=== PATIENT | male | born 1990 | race American Indian/Alaskan Native ===

== ENCOUNTER 2018-04-24 15:06 | Emergency (ER) | payer SELFPAY ==
[2018-04-24 16:07] LABS: Bilirubin,Urine NEG (Negative); Blood,Urine SM (Negative); Color,Urine Yellow (Yellow); Mucus,Urine 1+ /HPF; Protein,Urine <15 mg/dL mg/dL (Negative); Urobilinogen,Urine < 2.0 mg/dL (<2.0)
[2018-04-24] MEDS ORDERED: BICILLIN L-A IM ONE (17:02)
--- NOTE | 2018-04-24 17:08 | Emergency Department Report ---
ED Male HPI - General Chief complaint: Urogenital-Male Stated complaint: GENITALS/RED SPOTS Time Seen by Provider: 04/24/18 16:42 Source: patient Mode of arrival: Ambulatory Limitations: No Limitations - History of Present Illness Initial comments: Patient is a 28-year-old [place] male uncircumcised 2 on the glans penis and just proximal to the glans underneath his foreskin patient has painless ulcerated lesions do been present for the past day. Patient denies any dysuria or penile discharge. Patient is sexually active. - Related Data Previous Rx's Medication Instructions Recorded Last Taken Type Bacitracin Zinc Oint [Antibiotic 1 applicatio TP BID #1 tube 04/24/18 Unknown Rx Oint] Clotrimazole 1% [Lotrimin 1%] 1 applic TP BID #1 tube 04/24/18 Unknown Rx Allergies Allergy/AdvReac Type Severity Reaction Status Date / Time No Known Allergies Allergy Unverified 04/24/18 15:23 ED Review of Systems ROS: Stated complaint: GENITALS/RED SPOTS Other details as noted in HPI Comment: All other systems reviewed and negative ED Past Medical Hx - Past Medical History Previous Medical History?: No - Surgical History Past Surgical History?: No - Social History Smoking Status: Never Smoker Substance Use Type: None - Medications Home Medications: Home Medications Medication Instructions Recorded Confirmed Last Taken Type Bacitracin Zinc Oint [Antibiotic 1 applicatio TP BID #1 tube 04/24/18 Unknown Rx Oint] Clotrimazole 1% [Lotrimin 1%] 1 applic TP BID #1 tube 04/24/18 Unknown Rx ED Physical Exam - General Limitations: No Limitations General appearance: alert, in no apparent distress - Head Head exam: Present: atraumatic, normocephalic - Eye Eye exam: Present: normal appearance - ENT ENT exam: Present: mucous membranes moist - Neck Neck exam: Present: normal inspection - Respiratory Respiratory exam: Present: normal lung sounds bilaterally. Absent: respiratory distress - Cardiovascular Cardiovascular Exam: Present: regular rate, normal rhythm. Absent: systolic murmur, diastolic murmur, rubs, gallop - GI/Abdominal GI/Abdominal exam: Present: soft, normal bowel sounds. Absent: distended, tenderness, guarding - Rectal Rectal exam: Present: deferred - exam: Absent: normal inspection, testicular tenderness, urethral discharge, scrotal swelling, vertical testicular lie External exam: Present: lesions (patient has approximate 3 round erythematous lesions that are nonpainful just proximal to the glans penis underneath his foreskin. One of these lesions is extend into the glans.) - Extremities Exam Extremities exam: Present: normal inspection - Back Exam Back exam: Present: normal inspection - Neurological Exam Neurological exam: Present: alert, oriented X3 - Psychiatric Psychiatric exam: Present: normal affect, normal mood - Skin Skin exam: Present: warm, dry, intact, normal color. Absent: rash ED Course Vital Signs 04/24/18 15:23 Temperature 98.9 F Pulse Rate 55 L Respiratory 16 Rate Blood Pressure 114/68 O2 Sat by Pulse 99 Oximetry ED Medical Decision Making - Medical Decision Making As these lesions are not painful herpes is less likely. RPR will be ordered patient also be covered for yeast as well. Critical care attestation.: If time is entered above; I have spent that time in minutes in the direct care of this critically ill patient, excluding procedure time. ED Disposition Clinical Impression: Penile lesion Disposition: DC-01 TO HOME OR SELFCARE Is pt being admited?: No Does the pt Need Aspirin: No Condition: Stable Prescriptions: Bacitracin Zinc Oint [Antibiotic Oint] 1 applicatio TP BID #1 tube Clotrimazole 1% [Lotrimin 1%] 1 applic TP BID #1 tube Referrals: PRIMARY CARE, [Primary Care Provider] - 3-5 Days
[2018-04-24 17:20] VITALS: BP 116/70
== END 2018-04-24 17:17 | disposition home or self-care (01) ==
LOC: ED 15:06
DX: N48.89 Other specified disorders of penis (principal)
CPT/HCPCS: 36415; 81001; 86592; 87086; 96372; 99283; J0561

== ENCOUNTER 2019-02-20 17:56 | Emergency (ER) | payer OTHER ==
--- NOTE | 2019-02-20 18:13 | Emergency Department Report ---
Blank Doc - Documentation Documentation: 28 y o male presents to Ed cc of n/v/d x 10 pm last night ate seafood yesterday basic labs,ua acc eval
[2019-02-20 18:45] LABS: Bilirubin,Urine NEG (Negative); Blood,Urine MOD (Negative); Color,Urine Yellow (Yellow); Mucus,Urine FEW /HPF; Protein,Urine <15 mg/dL mg/dL (Negative); Urobilinogen,Urine < 2.0 mg/dL (<2.0)
[2019-02-20 18:47] LABS: Basophils # (Auto) 0.1 K/mm3 (0.0-0.1); Eosinophils # (Auto) 0.2 K/mm3 (0.0-0.4); Eosinophils % (Auto) 3.2 % (0.0-4.3); Hematocrit 44.4 % (35.5-45.6); Hemoglobin 14.9 gm/dl (11.8-15.2); Lymphocytes # (Auto) 2.2 K/mm3 (1.2-5.4); Mean Corpuscular HGB Conc 34 % (32-34); Mean Corpuscular Volume 96 fl (84-94); Monocytes # (Auto) 0.5 K/mm3 (0.0-0.8); Monocytes % (Auto) 8.3 % (0.0-7.3); Platelet Count 275 K/mm3 (140-440); Red Blood Count 4.62 M/mm3 (3.65-5.03)
[2019-02-20 18:53] LABS: BUN/Creatinine Ratio 18; Blood Urea Nitrogen 14 mg/dL (9-20); Calcium 8.9 mg/dL (8.4-10.2)
[2019-02-20 18:54] LABS: Hemolysis Index 9
[2019-02-20] MEDS ORDERED: TORADOL IV ONE (20:17)
[2019-02-20] MEDS ORDERED: ZOFRAN IV ONE (20:17)
[2019-02-20] MEDS ORDERED: NACL 0.9% 1000 ML 1,000 ML IV ONE (20:17)
[2019-02-20 21:18] LABS: Alanine Aminotransferase 22 units/L (7-56); Albumin 4.3 g/dL (3.9-5)
--- NOTE | 2019-02-20 21:18 | Cat Scan Report ---
PROCEDURE: CT ABDOMEN PELVIS WO CON HISTORY: abd pain FINDINGS: Unenhanced CT of the abdomen and pelvis was performed. The heart is normal in size. The lung bases appear clear. There are small bilateral renal calculi. No ureteral calculus or hydronephrosis is identified. The adrenal glands, gallbladder, spleen, pancreas are unremarkable. There is no small or large bowel obstruction. There is a small right lobe hepatic hypodensity, 0.3 cm consistent with cyst Pelvis: There is a normal appendix. There is no evidence of diverticulitis. The prostate and urinary bladder are within normal limits. There is a small posterior disc bulge L5-S1. There is no evidence of canal stenosis or nerve root imp ingement IMPRESSION: ABDOMEN: Bilateral nonobstructing renal calculi Pelvis: Normal appendix This document is electronically signed by Donaldo Monroy MD., February 20 2019 10:16:14 PM ET
[2019-02-20 21:26] LABS: Bilirubin,Direct < 0.2 mg/dL (0-0.2)
--- NOTE | 2019-02-20 21:35 | Emergency Department Report ---
ED Abdominal Pain HPI - General Chief Complaint: Abdominal Pain Stated Complaint: ABD PAIN/V/D/DIZZY Time Seen by Provider: 02/20/19 18:11 Source: patient Mode of arrival: Ambulatory Limitations: No Limitations - History of Present Illness Initial Comments: 28 y o male presents to Ed cc of n/v/d x 10 pm last night ate seafood yesterday basic labs,ua Onset/Timin -: days(s) Location: suprapubic, bilateral flank Radiation: bilateral flank Migration to: suprapubic Severity: moderate Severity scale (0 -10): 8 Quality: sharp Consistency: intermittent Improves With: nothing Worsens With: nothing Associated Symptoms: nausea, vomiting, dysuria - Related Data Previous Rx's Medication Instructions Recorded Last Taken Type Bacitracin Zinc Oint [Antibiotic 1 applicatio TP BID #1 tube 04/24/18 Unknown Rx Oint] Clotrimazole 1% [Lotrimin 1%] 1 applic TP BID #1 tube 04/24/18 Unknown Rx Ondansetron [Zofran Odt] 4 mg PO Q8HR #12 tab.rapdis 02/20/19 Unknown Rx Tamsulosin [Flomax] 0.4 mg PO QDAY #15 cap 02/20/19 Unknown Rx traMADol [Ultram] 50 mg PO Q6HR PRN #12 tablet 02/20/19 Unknown Rx Allergies Allergy/AdvReac Type Severity Reaction Status Date / Time No Known Allergies Allergy Verified 02/20/19 17:57 ED Review of Systems ROS: Stated complaint: ABD PAIN/V/D/DIZZY Other details as noted in HPI Constitutional: denies: chills, fever Eyes: denies: eye pain, eye discharge, vision change ENT: denies: ear pain, throat pain Respiratory: denies: cough, shortness of breath, wheezing Cardiovascular: denies: chest pain, palpitations Endocrine: no symptoms reported Gastrointestinal: abdominal pain, nausea, vomiting. denies: diarrhea Genitourinary: dysuria, frequency. denies: urgency, hematuria, discharge, te sticular pain, testicular mass Musculoskeletal: back pain. denies: joint swelling, arthralgia Skin: denies: rash, lesions Neurological: denies: headache, weakness, paresthesias Psychiatric: denies: anxiety, depression Hematological/Lymphatic: denies: easy bleeding, easy bruising ED Past Medical Hx - Past Medical History Previous Medical History?: No - Surgical History Past Surgical History?: No - Social History Smoking Status: Current Every Day Smoker Substance Use Type: None - Medications Home Medications: Home Medications Medication Instructions Recorded Confirmed Last Taken Type Bacitracin Zinc Oint [Antibiotic 1 applicatio TP BID #1 tube 04/24/18 Unknown Rx Oint] Clotrimazole 1% [Lotrimin 1%] 1 applic TP BID #1 tube 04/24/18 Unknown Rx Ondansetron [Zofran Odt] 4 mg PO Q8HR #12 tab.rapdis 02/20/19 Unknown Rx Tamsulosin [Flomax] 0.4 mg PO QDAY #15 cap 02/20/19 Unknown Rx traMADol [Ultram] 50 mg PO Q6HR PRN #12 tablet 02/20/19 Unknown Rx ED Physical Exam - General Limitations: No Limitations General appearance: alert, in no apparent distress - Head Head exam: Present: atraumatic, normocephalic - Eye Eye exam: Present: normal appearance - ENT ENT exam: Present: mucous membranes moist - Neck Neck exam: Present: normal inspection, full ROM - Respiratory Respiratory exam: Present: normal lung sounds bilaterally. Absent: respiratory distress, wheezes, rhonchi - Cardiovascular Cardiovascular Exam: Present: regular rate, normal rhythm, normal heart sounds. Absent: systolic murmur, diastolic murmur, rubs, gallop - GI/Abdominal GI/Abdominal exam: Present: soft, normal bowel sounds. Absent: distended, tenderness, guarding, rebound, rigid, bruit, hernia - Rectal Rectal exam: Present: deferred - Extremities Exam Extremities exam: Present: normal inspection, full ROM, normal capillary refill. Absent: tenderness - Back Exam Back exam: Present: normal inspection, full ROM, tenderness, CVA tenderness (R), CVA tenderness (L). Absent: muscle spasm, paraspinal tenderness, vertebral tenderness, rash noted - Neurological Exam Neurological exam: Present: alert, oriented X3, CN II-XII intact, normal gait, reflexes normal. Absent: motor sensory deficit - Psychiatric Psychiatric exam: Present: normal affect, normal mood - Skin Skin exam: Present: warm, dry, intact, normal color. Absent: rash ED Course Vital Signs 02/20/19 02/20/19 18:11 20:55 Temperature 98.5 F Pulse Rate 65 Respiratory 18 20 Rate Blood Pressure 134/86 O2 Sat by Pulse 100 Oximetry ED Medical Decision Making - Lab Data Result diagrams: 02/20/19 18:33 02/20/19 18:33 - Radiology Data Radiology results: report reviewed, image reviewed rdering Physician: CHRISTINA LARIOS NP Date of Service: 02/20/19 Procedure(s): CT abdomen pelvis wo con Accession Number(s): [id number] cc: CHRISTINA LARIOS NP PROCEDURE: CT ABDOMEN PELVIS WO CON HISTORY: abd pain FINDINGS: Unenhanced CT of the abdomen and pelvis was performed. The heart is normal in size. The lung bases appear clear. There are small bilateral renal calculi. No ureteral calculus or hydronephrosis is identified. The adrenal glands, gallbladder, spleen, pancreas are unremarkable. There is no small or large bowel obstruction. There is a small right lobe hepatic hypodensity, 0.3 cm consistent with cyst Pelvis: There is a normal appendix. There is no evidence of diverticulitis. The prostate and urinary bladder are within normal limits. There is a small posterior disc bulge L5-S1. There is no evidence of canal stenosis or nerve root impingement IMPRESSION: ABDOMEN: Bilateral nonobstructing renal calculi Pelvis: Normal appendix This document is electronically signed by Donaldo Monroy MD., February 20 2019 10:16:14 PM ET Transcribed By: VENECIA Dictated By: DONALDO MONROY MD Electronically Authenticated By: DONALDO MONROY MD Signed Date/Time: 02/20/192117 DD/ 00 TD/TT: 02/20/192100 - Medical Decision Making ct abd and pelvis : kidney stones bilat nonobstructing, plan: dc to home with rx for flomax, ultram, zofran there is no hydronephrosis no pyelonephritis n/v is resolve Critical care attestation.: If time is entered above; I have spent that time in minutes in the direct care of this critically ill patient, excluding procedure time. ED Disposition Clinical Impression: Kidney stones Nausea and vomiting Qualifiers: Vomiting type: unspecified Vomiting Intractability: non-intractable Qualified Code(s): R11.2 - Nausea with vomiting, unspecified Disposition: DC-01 TO HOME OR SELFCARE Is pt being admited?: No Does the pt Need Aspirin: No Condition: Stable Instructions: Kidney Stones (ED), Acute Nausea and Vomiting (ED) Prescriptions: Tamsulosin [Flomax] 0.4 mg PO QDAY #15 cap traMADol [Ultram] 50 mg PO Q6HR PRN #12 tablet PRN Reason: Pain Ondansetron [Zofran Odt] 4 mg PO Q8HR #12 tab.rapdis Referrals: BHARAT DEVLIN MD [Staff Physician] - 3-5 Days Forms: Work/School Release Form(ED) Time of Disposition: 22:09
[2019-02-20 22:42] VITALS: BP 106/73
== END 2019-02-20 22:42 | disposition home or self-care (01) ==
LOC: ED 17:56
DX: N20.0 Calculus of kidney (principal); F17.200 Nicotine dependence, unspecified, uncomplicated
CPT/HCPCS: 36415; 74176; 80048; 80076; 81001; 83690; 85025; J1885; J2405; J7030; 96361; 96374; 96375

== ENCOUNTER 2019-07-11 14:47 | Emergency (ER) | payer SELFPAY ==
--- NOTE | 2019-07-11 14:56 | Event Note ---
ED Screening Note Date of service: 07/11/19 Time: 14:52 ED Screening Note: This is a 29 y.o. M. that presents to the ER with right foot pain and swelling for 3 days. He reports falling from 3rd/4th step while at home 3 days ago. This initial assessment/diagnostic orders/clinical plan/treatment(s) is/are subject to change based on patients health status, clinical progression and re- assessment by fellow clinical providers in the ED. Further treatment and workup at subsequent clinical providers discretion. Patient/guardian urged not to elope from the ED as their condition may be serious if not clinically assessed and managed. Initial orders include: XR right foot
[2019-07-11 14:58] VITALS: BP 153/98
[2019-07-11] MEDS ORDERED: TORADOL IM ONE (15:58)
--- NOTE | 2019-07-11 16:02 | XRay Report ---
Right foot, 3 views INDICATION: Pain following fall today FINDINGS: The joint space is maintained. There is no fracture or dislocation. No spurring or arthriti c change. No bone lesion or periostitis. No significant abnormality. IMPRESSION: Negative study Signer Name: Jordan Fournier MD Signed: 07/11/2019 3:58 PM Workstation Name: [id number]
[2019-07-11] MEDS ORDERED: ULTRAM PO ONE (16:04)
[2019-07-11] MEDS ORDERED: BACTRIM DS PO ONE (16:04)
--- NOTE | 2019-07-11 16:22 | Emergency Department Report ---
ED Lower Extremity HPI - General Chief Complaint: Extremity Injury, Lower Stated Complaint: RT LEG BITE/PAIN/FALL INJURY Time Seen by Provider: 07/11/19 14:52 Source: patient Mode of arrival: Wheelchair Limitations: No Limitations - History of Present Illness Initial Comments: 29-year-old male presents to the hospital complaining of pain and swelling to right foot. Patient fell 3 days ago down several stairs in his slippers injuring his right foot. Since original injury he has been able to bear complete weight and has been walking with pressure on his heel. Today he woke up with generalized right foot swelling and redness and worsening pain. Pain is rated 5/10 intensity and worse a palpation and movement. Patient is not taking any pain medication today. No fever reported. tetanus not up to date - Related Data Previous Rx's Medication Instructions Recorded Last Taken Type Bacitracin Zinc Oint [Antibiotic 1 applicatio TP BID #1 tube 04/24/18 Unknown Rx Oint] Clotrimazole 1% [Lotrimin 1%] 1 applic TP BID #1 tube 04/24/18 Unknown Rx Ondansetron [Zofran Odt] 4 mg PO Q8HR #12 tab.rapdis 02/20/19 Unknown Rx Tamsulosin [Flomax] 0.4 mg PO QDAY #15 cap 02/20/19 Unknown Rx Ibuprofen [Motrin] 800 mg PO Q8HR PRN #30 tablet 07/11/19 Unknown Rx Sulfamethoxazole/Trimethoprim 1 each PO BID #20 tablet 07/11/19 Unknown Rx [Bactrim DS TAB] traMADol [Ultram 50 MG tab] 50 mg PO Q6HR PRN #15 tablet 07/11/19 Unknown Rx Allergies Allergy/AdvReac Type Severity Reaction Status Date / Time No Known Allergies Allergy Verified 02/20/19 17:57 ED Review of Systems ROS: Stated complaint: RT LEG BITE/PAIN/FALL INJURY Other details as noted in HPI Comment: All other systems reviewed and negative ED Past Medical Hx - Past Medical History Previous Medical History?: No - Surgical History Past Surgical History?: No - Social History Smoking Status: Current Every Day Smoker - Medications Home Medications: Home Medications Medication Instructions Recorded Confirmed Last Taken Type Bacitracin Zinc Oint [Antibiotic 1 applicatio TP BID #1 tube 04/24/18 Unknown Rx Oint] Clotrimazole 1% [Lotrimin 1%] 1 applic TP BID #1 tube 04/24/18 Unknown Rx Ondansetron [Zofran Odt] 4 mg PO Q8HR #12 tab.rapdis 02/20/19 Unknown Rx Tamsulosin [Flomax] 0.4 mg PO QDAY #15 cap 02/20/19 Unknown Rx Ibuprofen [Motrin] 800 mg PO Q8HR PRN #30 tablet 07/11/19 Unknown Rx Sulfamethoxazole/Trimethoprim 1 each PO BID #20 tablet 07/11/19 Unknown Rx [Bactrim DS TAB] traMADol [Ultram 50 MG tab] 50 mg PO Q6HR PRN #15 tablet 07/11/19 Unknown Rx ED Physical Exam - General Limitations: No Limitations - Other Other exam information: Gen.: No acute distress Head: Atraumatic Eyes: Normal appearance ENT: Moist mucous membranes Neck: Normal appearance, no posterior midline tenderness, no meningismus Chest: Clear to auscultation bilaterally Cardiovascular: Regular rate and rhythm Abdomen: Normal appearance, soft, nontender, no rebound or guarding, normal bowel sounds Back: Normal appearance, nontender Extremity: Full range of motion, generalized right foot swelling to dorsum of foot with erythema, mild warmth, 2+ DP pulse. Pain with passive movement of the third, fourth, and fifth toes. No deformity noted. lateral 3rd toe wound with topical antibiotic ointment placed by pt, no active drainage. No ankle tenderness or edema. Neuro: Alert O x 3, clear speech, no focal motor or sensory deficit Psychiatric: Appropriate Skin: see extremity exam ED Course Vital Signs 07/11/19 07/11/19 07/11/19 14:56 16:09 16:15 Temperature 99.6 F Pulse Rate 78 Respiratory 18 18 18 Rate Blood Pressure 153/98 O2 Sat by Pulse 98 Oximetry ED Lower Extremity MDM - Radiology Data Radiology results: report reviewed Right foot, 3 views INDICATION: Pain following fall today FINDINGS: The joint space is maintained. There is no fracture or dislocation. No spurring or arthritic change. No bone lesion or periostitis. No significant abnormality. IMPRESSION: Negative study - Medical Decision Making no fracture diag foot contusion with possible cellulitis meds: tramadol, toradol, bactrim, tetanus in ed wound dressing to toe, ortho shoe plan to d/c with meds and crutches pmd and ortho f/u - Differential Diagnosis fracture, contusion, sprain Critical Care Time: No Critical care attestation.: If time is entered above; I have spent that time in minutes in the direct care of this critically ill patient, excluding procedure time. ED Disposition Clinical Impression: Right foot sprain, Cellulitis of right foot Disposition: TO HOME OR SELFCARE Is pt being admited?: No Does the pt Need Aspirin: No Condition: Stable Instructions: Cellulitis (ED), Foot Sprain (ED) Additional Instructions: Take the medication as prescribed. Follow-up with your doctor or with the doctor/clinic provided. Return if symptoms worsen as indicated by your discharge instructions. Prescriptions: Sulfamethoxazole/Trimethoprim [Bactrim DS TAB] 1 each PO BID #20 tablet Ibuprofen [Motrin] 800 mg PO Q8HR PRN #30 tablet PRN Reason: Pain, Moderate (4-6) traMADol [Ultram 50 MG tab] 50 mg PO Q6HR PRN #15 tablet PRN Reason: Pain Referrals: PRIMARY MD RASHMI [Primary Care Provider] - 3-5 Days YAO HERNANDEZ MD [Staff Physician] - 3-5 Days [facility] [Provider Group] - 3-5 Days Time of Disposition: 16:26
[2019-07-11] MEDS ORDERED: BOOSTRIX IM ONE (16:48)
== END 2019-07-11 17:18 | disposition home or self-care (01) ==
LOC: ED 14:47
DX: S93.601A Unspecified sprain of right foot, initial encounter (principal); L03.115 Cellulitis of right lower limb; F17.200 Nicotine dependence, unspecified, uncomplicated; Z79.899 Other long term (current) drug therapy; W10.8XXA Fall (on) (from) other stairs and steps, initial encounter; Y93.89 Activity, other specified; Y92.009 Unspecified place in unspecified non-institutional (private) residence as the place of occurrence of the external cause; Y99.8 Other external cause status
CPT/HCPCS: 73630; 90471; 90715; 96372; 99283; J1885

== ENCOUNTER 2020-02-21 08:38 | Emergency (ER) | payer SELFPAY ==
[2020-02-21 09:09] VITALS: BP 128/89
--- NOTE | 2020-02-21 09:32 | XRay Report ---
HISTORY:pain, injury, decreased ROM COMPARISON: None. TECHNIQUE: AP lateral and obliques views were obtained FINDINGS: Bones: No fracture or dislocation. Joint spaces: Maintained. Soft tissues: No significant abnormality. Additional findings: None. IMPRESSION: 1. No significant abnormality. Signer Name: Ken Barnett MD Signed: 02/21/2020 9:27 AM Workstation Name: [id number]
[2020-02-21] MEDS ORDERED: IBUPROFEN 800 MG TAB PO ONE (11:56)
[2020-02-21 12:03] LABS: Bilirubin,Urine NEG (Negative); Blood,Urine SM (Negative); Color,Urine Yellow (Yellow); Mucus,Urine 1+ /HPF; Protein,Urine <15 mg/dL mg/dL (Negative)
--- NOTE | 2020-02-21 12:04 | Emergency Department Report ---
ED Upper Extremity Inj HPI - General Chief Complaint: Extremity Injury, Upper Stated Complaint: ABD PAIN, WRIST PAIN Time Seen by Provider: 02/21/20 11:13 Source: patient Mode of arrival: Ambulatory Limitations: No Limitations - History of Present Illness Initial Comments: This is a 29-year-old male nontoxic, well nourished in appearance, no acute signs of distress presents to the ED with c/o of right wrist and right mid back/flank pain 3 days. Patient stated that he has been heavy lifting at work prior to symptoms. Patient denies any trauma. Denies any radiation of pain. Denies any bladder or bowel instability. Patient denies any urinary symptoms. Denies any abdominal or pelvic pain. Patient denies any numbness, tingling, fever, chills, nausea, vomiting, chest pain, shortness of breath, headache, stiff neck. Patient denies any joint swelling or joint redness. Patient stated has some decreased range of motion. Patient denies abnormal gait. Patient denies any allergies or significant past medical history. MD Complaint: Injury to:: right, wrist -: days(s) (3) Other Extremity Injury: Wrist: Right Other Injuries: none Place: work Severity scale (0 -10): 8 Improves With: immobilization Worsens With: movement of extremity Associated Symptoms: denies other symptoms. denies: weakness, numbness, neck pain, suspects foreign body, nausea/vomiting, heard/felt popping sensat - Related Data Previous Rx's Medication Instructions Recorded Last Taken Type Bacitracin Zinc Oint [Antibiotic 1 applicatio TP BID #1 tube 04/24/18 Unknown Rx Oint] Clotrimazole 1% [Lotrimin 1%] 1 applic TP BID #1 tube 04/24/18 Unknown Rx Ondansetron [Zofran Odt] 4 mg PO Q8HR #12 tab.rapdis 02/20/19 Unknown Rx Tamsulosin [Flomax] 0.4 mg PO QDAY #15 cap 02/20/19 Unknown Rx Ibuprofen [Motrin] 800 mg PO Q8HR PRN #30 tablet 07/11/19 Unknown Rx Sulfamethoxazole/Trimethoprim 1 each PO BID #20 tablet 07/11/19 Unknown Rx [Bactrim DS TAB] traMADoL [Ultram 50 MG tab] 50 mg PO Q6HR PRN #15 tablet 07/11/19 Unknown Rx Ketorolac [Toradol] 10 mg PO Q6H PRN #12 tablet 02/21/20 Unknown Rx Allergies Allergy/AdvReac Type Severity Reaction Status Date / Time No Known Allergies Allergy Verified 02/20/19 17:57 ED Review of Systems ROS: Stated complaint: ABD PAIN, WRIST PAIN Other details as noted in HPI Constitutional: denies: chills, fever Eyes: denies: eye pain, eye discharge, vision change ENT: denies: ear pain, throat pain Respiratory: denies: cough, shortness of breath, wheezing Cardiovascular: denies: chest pain, palpitations Endocrine: no symptoms reported Gastrointestinal: denies: abdominal pain, nausea, vomiting, diarrhea Genitourinary: denies: urgency, dysuria Musculoskeletal: back pain. denies: joint swelling, arthralgia Skin: denies: rash, lesions Neurological: denies: headache, weakness, paresthesias Psychiatric: denies: anxiety, depression Hematological/Lymphatic: denies: easy bleeding, easy bruising ED Past Medical Hx - Past Medical History Previous Medical History?: Yes Hx Asthma: Yes - Surgical History Past Surgical History?: No - Social History Smoking Status: Current Every Day Smoker Substance Use Type: Marijuana - Medications Home Medications: Home Medications Medication Instructions Recorded Confirmed Last Taken Type Bacitracin Zinc Oint [Antibiotic 1 applicatio TP BID #1 tube 04/24/18 Unknown Rx Oint] Clotrimazole 1% [Lotrimin 1%] 1 applic TP BID #1 tube 04/24/18 Unknown Rx Ondansetron [Zofran Odt] 4 mg PO Q8HR #12 tab.rapdis 02/20/19 Unknown Rx Tamsulosin [Flomax] 0.4 mg PO QDAY #15 cap 02/20/19 Unknown Rx Ibuprofen [Motrin] 800 mg PO Q8HR PRN #30 tablet 07/11/19 Unknown Rx Sulfamethoxazole/Trimethoprim 1 each PO BID #20 tablet 07/11/19 Unknown Rx [Bactrim DS TAB] traMADoL [Ultram 50 MG tab] 50 mg PO Q6HR PRN #15 tablet 07/11/19 Unknown Rx Ketorolac [Toradol] 10 mg PO Q6H PRN #12 tablet 02/21/20 Unknown Rx ED Physical Exam - General Limitations: No Limitations General appearance: alert, in no apparent distress - Head Head exam: Present: atraumatic, normocephalic - Eye Eye exam: Present: normal appearance - Neck Neck exam: Present: normal inspection, full ROM. Absent: tenderness, lymphadenopathy - GI/Abdominal GI/Abdominal exam: Present: soft, normal bowel sounds. Absent: distended, tenderness, guarding, rebound, rigid, diminished bowel sounds - Extremities Exam Extremities exam: Present: normal inspection, full ROM, tenderness, normal capillary refill. Absent: joint swelling - Back Exam Back exam: Present: normal inspection, full ROM, paraspinal tenderness (left sided throacic paraspinal). Absent: tenderness, CVA tenderness (R), CVA tenderness (L), muscle spasm, vertebral tenderness, rash noted - Expanded Back Exam Expanded Back exam: Absent: saddle anesthesia Back exam: Negative Straight Leg Raising: Left, Right - Neurological Exam Neurological exam: Present: alert, oriented X3, normal gait - Psychiatric Psychiatric exam: Present: normal affect, normal mood - Skin Skin exam: Present: warm, dry, intact, normal color. Absent: rash ED Course Vital Signs 02/21/20 02/21/20 02/21/20 09:05 12:08 13:08 Temperature 97.6 F Pulse Rate 65 Respiratory 18 18 18 Rate Blood Pressure 128/89 O2 Sat by Pulse 99 Oximetry - Reevaluation(s) Reevaluation #1: 02/21/20 12:05 Patient is speaking in full sentences with no signs of distress noted. ED Medical Decision Making - Medical Decision Making This is a 29-year-old male that presents with kidney stone and left wrist strain. Patient is stable and was examined by me. UA shows some blood so a CT w/o contrast has been obtained and dictated by the radiologist. I referred patient to an orthopedic doctor for further evaluation for possible MRI. X-ray has been obtained and dictated by the radiologist. Patient is notified of the x-ray report with noted by the patient. There is no spinal tenderness. There is no cauda equina syndrome during examination. No bladder or bowel instability. Patient does have normal gait with no tenderness and no joint swelling. No ecchymosis. no joint redness or swelling. Not warm to touch. No signs of cellulites present. Patient received a wrist immobilize for pain comfort. Patient was instructed to RICE therapy. Patient received Motrin for pain. Patient is discharged with Naproxen and flexeril. At time of discharge, the patient does not seem toxic or ill in appearance. No acute signs of distress noted. Patient agrees to discharge treatment plan of care. No further questions noted by the patient. Critical care attestation.: If time is entered above; I have spent that time in minutes in the direct care of this critically ill patient, excluding procedure time. ED Disposition Clinical Impression: Bilateral kidney stones, Strain of right wrist Disposition: DC-01 TO HOME OR SELFCARE Is pt being admited?: No Does the pt Need Aspirin: No Condition: Stable Instructions: Kidney Stones (ED), RICE Therapy (ED) Additional Instructions: Follow-up with a orthopedic doctor in 3-5 days or if symptoms worsen and continue return to emergency room as soon as possible. Prescriptions: Ketorolac [Toradol] 10 mg PO Q6H PRN #12 tablet PRN Reason: Pain Referrals: PRIMARY CAREMD [Primary Care Provider] - 3-5 Days CHRISTINE WEN MD [Staff Physician] - 3-5 Days BHARAT DEVLIN MD [Staff Physician] - 3-5 Days YAO HERNANDEZ MD [Staff Physician] - 3-5 Days Forms: Work/School Release Form(ED)
--- NOTE | 2020-02-21 14:23 | Cat Scan Report ---
CT ABDOMEN AND PELVIS WITHOUT CONTRAST INDICATION: right flank pain. COMPARISON: CT abdomen and pelvis without contrast from 02/20/2019. TECHNIQUE: Axial, coronal and sagittal CT imaging of the abdomen and pelvis was performed without co ntrast. Lack of intravenous contrast limits evaluation of the vascular and solid organs. All CT sca ns at this location are performed using CT dose reduction for ALARA by means of automated exposure co ntrol. FINDINGS: LOWER CHEST: No significant abnormality. LIVER: No significant abnormality. BILIARY: No significant abnormality. PANCREAS: No significant abnormality. SPLEEN: No significant abnormality. ADRENALS: No significant abnormality. KIDNEYS AND URETERS: Multiple nonobstructive bilateral renal stones are again seen. The largest stone on the left is located along the lower pole and measures 5 mm. The largest stone on the right is loc ated along the mid pole and measures 3 mm. No additional significant abnormality. GI TRACT: No significant abnormality of the stomach, small bowel or colon. Unremarkable appendix. PERITONEUM: No free fluid. No free air. No fluid collection. LYMPH NODES: No significant adenopathy. VASCULATURE: No significant abnormality. URINARY BLADDER: No significant abnormality. REPRODUCTIVE ORGANS: No significant abnormality. ADDITIONAL FINDINGS: None. SKELETAL SYSTEM: No significant abnormality. IMPRESSION: Nonobstructive bilateral renal stones as above. Signer Name: Darin Patel MD Signed: 02/21/2020 2:19 PM Workstation Name: [email or web address]
== END 2020-02-21 15:02 | disposition home or self-care (01) ==
LOC: ED 08:38
DX: S66.811A Strain of other specified muscles, fascia and tendons at wrist and hand level, right hand, initial encounter (principal); N20.0 Calculus of kidney; J45.909 Unspecified asthma, uncomplicated; F17.200 Nicotine dependence, unspecified, uncomplicated; F12.10 Cannabis abuse, uncomplicated; X58.XXXA Exposure to other specified factors, initial encounter; Y93.89 Activity, other specified; Y92.89 Other specified places as the place of occurrence of the external cause; Y99.8 Other external cause status
CPT/HCPCS: 74176; 81001; 87086